=== PATIENT | female | born 1980 | race Caucasian/White ===

== ENCOUNTER 2018-03-24 23:46 | Emergency (ER) | payer MEDICAID ==
[~2018-03-24] VITALS: Ht 162.6 cm; Wt 58.0 kg
[~2018-03-24 23:46] MED LIST: IBUP-1222 PO
[2018-03-24 23:48] VITALS: BP 120/79
== END 2018-03-25 02:13 | disposition home or self-care (01) ==
LOC: ED 03-25 02:07
DX: J20.8 Acute bronchitis due to other specified organisms (principal); F17.200 Nicotine dependence, unspecified, uncomplicated
CPT/HCPCS: 71045; 99283